=== PATIENT | female | born 1965 | race Caucasian/White ===

== ENCOUNTER 2016-11-02 14:29 | Emergency (ER) | payer SELFPAY ==
[2016-11-02 14:33] VITALS: BP 136/94; BMI 27.4
--- NOTE | 2016-11-02 15:07 | DR.HEADACH ---
HPI - Time Seen Time seen: 14:46 - Primary Care Physician Primary Care Physician: NFD - Complaint/Symptoms Chief Complaint Doctors Comments: Patient admits to right frontal headache that radiates down right side of neck..The onset of headache was two months ago associated with right eye pain. The pain last for about two hours and returns in 2-3 hours. Chief Complaint:: PT. HAS BEEN EXPERERIENCING BAD HEADACHES FOR ABOUT A MONTH NOW WHICH SHE HAS BEEN TAKING EXCEDRIN MIGRAINE FOR. PT. STATES THE PAIN STARTS AT THE TOP OF HER HEAD AND RADIATES DOWN HER HEAD TO HER NECK WHICH MAKES HER NECK STIFF, OCCURS MAINLY ON THE RIGHT SIDE. - Source History Provided: Patient - Mode of Arrival Mode of Arrival: Ambulatory - Timing Onset of Chief Complaint: 10/03/16 PMH - PMH Past Medical History: Yes Past Medical History: [place] Past Medical History Comment: TIA Past Surgical History: Yes Surgical History: , Cholecystectomy - Family History History of Family Medical Conditions: Yes Family Medical History: Coronary Artery Disease, Hypertension - Social History Does patient currently use any type of tobacco product: No Have you used tobacco products in the last 12 months: No Type of Tobacco Use: None Does any household member use tobacco: No Alcohol Use: None Do you use any recreational Drugs:: No Lives With: Spouse Lives Where: Home - infectious screening In the last 2 months have you had wt loss of >10#?: NO Have you had fever, night sweats or hemotysis?: No Have you traveled outside the country in the last 6 months?: No Isolation: Standard ROS - Review of Systems Constitutional: No Symptoms Reported Eyes: No Symptoms Reported ENTM: No Symptoms Reported Respiratoy: No Symptoms Reported Cardiovascular: No Symptoms Reported, Chest Pain Genitourinary: No Symptoms Reported Neurological: No Symptoms Reported Musculoskeletal: No Symptoms Reported Integumentary: No Symptoms Reported Hematologic/Lymphatic: No Symptoms Reported Endocrine: No Symptoms Reported Psychiatric: No Symptoms Reported All Other Systems: Reviewed and Negative PE - Vital Signs Vitals: Temperature 97.8 F Pulse Rate 84 Respiratory Rate 16 Blood Pressure [Left Arm] 133/84 Blood Pressure 136/94 O2 Sat by Pulse Oximetry 97 - General Limitations: No Limitations General Appearance: Alert, In No Apparent Distress - Head Head Exam: Normal Inspection, Atraumatic - Eyes Eye exam: Normal Appearance, PERRL, EOMI Eyelids: Normal Inspection: Bilateral Pupils: Regular, Round: Bilateral Sclera/Conjunctival: Normal Inspection: Bilateral - ENT ENT Exam: Normal Exam External Ear Exam: Normal External Inspection TM/Canal Exam: Bilateral Normal Nose Exam: Normal Nose Exam Mouth Exam: Normal Inspection Throat Exam: Normal Inspection - Neck Neck Exam: Normal Inspection - Chest Chest Inspection: Normal Inspection - Respiratory Respiratory Exam: Normal Lung Sounds Bilat Respiratory Exam: Bilateral Clear to Auscultation - Cardiovascular Cardiovascular Exam: Regular Rate, Normal Rhythm - Abdominal Exam Abdominal Exam: Normal Inspection Abdominal Tenderness: negative: RUQ, RLQ, LUQ, LLQ, Epigastrium, Suprapubic, Diffuse, Mild, Moderate, Severe, Other - Extremities Extremities Exam: Normal Inspection, Full ROM - Back Back Exam: Normal Inspection, Full ROM - Neurologic Neurological Exam: Alert, Oriented X3, CN II-XII Intact - Psychiatric Psychiatric Exam: Normal Affect - Skin Skin Exam: Warm, Dry, Intact Course - Treatment Treatment: Visual acuity 20/100 bilaterally and 20/50 both - Reevaluation 1st: Unchanged ROR - XRAY XRAY Interpreted by: Radiologist (CT Brain: The brain parenchyma is within normal limits for patients age. No evidence of acute hemorrhage, midline shift , mass effect or abnormal extra-axial fluid collection. The ventricular system is symmetric and nondilated. The soft tissues and osseous structures mary grace unremarkable. Mild mucosal thickening in the floor of the right maxillary sinus. The remarining paranasal sinuses and mastoid air cells are clear. Impression: No acute intracranial abnormality.) - Diagnosis Discharge Problem: Reduced visual acuity, Headache around the eyes - Discharge Plan Condition: Stable - Follow ups/Referrals Follow ups/Referrals: NFD,None [Primary Care Provider] - 3 days - Instructions
--- NOTE | 2016-11-02 15:37 | CT ---
HISTORY: Chronic headache Study: CT brain without contrast Comparison: None Technique: Multiple axial images of the brain were obtained from the skull base to the vertex without administr ation of IV contrast. Dose reduction techniques including Automated Exposure Control (AEC) and adju stment of mA and kV were utilized. Findings: The brain parenchyma is within normal limits for patient's age. No evidence of acute hemorrhage, mi dline shift, mass effect or abnormal extra-axial fluid collection. The ventricular system is symmet dick and nondilated. The soft tissues and osseous structures are unremarkable. Mild mucosal thickeni ng in the floor of the right maxillary sinus. The remaining paranasal sinuses and mastoid air cells are clear. IMPRESSION: 1.No acute intracranial abnormality. Reported By:
== END 2016-11-02 16:11 | disposition home or self-care (01) ==
LOC: ER 14:41
DX: R51 Headache (principal); H53.8 Other visual disturbances
CPT/HCPCS: 70450; 99282